=== PATIENT | male | born 1960 | race Caucasian/White ===

== ENCOUNTER 2020-01-31 13:58 | Emergency (ER) | payer MEDICAID, OTHER ==
[~2020-01-31] VITALS: Ht 177.8 cm; Wt 120.4 kg
[2020-01-31] MEDS ORDERED: SULF5DRO OP (14:30)
[2020-01-31] MEDS ORDERED: DICL75TA2 PO (14:30)
--- NOTE | 2020-01-31 14:31 | ED General ---
General Stated Complaint: LT EAR PAIN Source of Information: Patient, RN/MD Exam Limitations: No Limitations, Language Barrier History of Present Illness Date Seen by Provider: Jan 31, 2020 Time Seen by Provider: 14:20 Initial Comments This patient is unable this speak due to being . We communicated by written notes. This patient is a 59-year-old male complaining of left ear pain after swimming [place] the [place] this weekend. Patient states he feels like his ears given little worse over the past couple days. On exam patient appears to have otitis externa. Patient states he has had this issue before. Patient denies fever. Timing/Duration: 2-3 Days Severity: Mild Associated Systoms: No Denies Symptoms, No Chest Pain, No Cough, No Diaphoresis, No Fever/Chills, No Headaches, No Loss of Appetite, No Malaise, No Nausea/Vomiting, No Rash, No Seizure, No Shortness of Air, No Syncope, No Weakness, No Other Allergies and Home Medications Patient Home Medication List Home Medication List Reviewed: Yes Review of Systems Review of Systems Constitutional: No no symptoms reported; see HPI; No chills, No diaphoresis, No dizziness, No fever, No malaise, No weakness, No weight gain, No weight loss, No other EENTM: see HPI, ear pain; No no symptoms reported, No ear discharge, No hearing loss, No blurred vision, No double vision, No eye pain, No tearing, No vision loss, No dental problems, No hoarseness, No mouth pain, No mouth swelling, No epistaxis, No nose congestion, No nose pain, No throat pain, No throat swelling, No other Respiratory: No no symptoms reported, No see HPI, No cough, No dyspnea on exertion, No hemoptysis, No orthopnea, No phlegm, No short of breath, No stridor, No wheezing, No other Cardiovascular: No no symptoms reported, No see HPI, No chest pain, No edema, No Hx of Intervention, No palpitations, No syncope, No vascular heart diseas, No other Gastrointestinal: No RUQ, No LUQ, No RLQ, No LLQ, No no symptoms reported, No see HPI, No abdominal pain, No constipation, No diarrhea, No dysphagia, No hem atemesis, No heartburn, No jaundice, No loss of appetite, No melena, No nausea, No vomiting, No other Musculoskeletal: No no symptoms reported, No see HPI, No back pain, No gout, No joint pain, No joint swelling, No muscle pain, No muscle stiffness, No muscle cramps, No muscle twitching, No muscle weakness, No neck pain, No other Skin: No no symptoms reported, No see HPI, No change in color, No change in hair/nails, No dryness, No hx of skin cancer, No lesions, No lumps, No pruritus, No rash, No other All Other Systems Reviewed Negative Unless Noted: Yes Past Iijkrig-Gevoda-Blzejf Hx Patient Social History Recent Foreign Travel: No Contact w/Someone Who Travel: No Physical Exam Vital Signs Capillary Refill : Height, Weight, BMI Height: '" Weight: lbs. oz. kg; BMI Method: General Appearance: No Apparent Distress, WD/WN HEENT: PERRL/EOMI, TMs Normal, Normal ENT Inspection, Pharynx Normal, Other (patient has no swelling and redness to the ear canal on the left side. Tympanic membrane appears to be normal. Is consistent with otitis externa.) Neck: Full Range of Motion, Normal Inspection, Non Tender, Supple Respiratory: Chest Non Tender, Lungs Clear, Normal Breath Sounds, No Accessory Muscle Use, No Respiratory Distress Cardiovascular: Regular Rate, Rhythm, No Edema, No Gallop, No JVD, No Murmur, Normal Peripheral Pulses Skin: Normal Color, Warm/Dry Progress/Results/Core Measures Suspected Sepsis SIRS Temperature: Pulse: Respiratory Rate: Blood Pressure / Mean: Results/Orders Vital Signs/I&O Capillary Refill : Departure Impression Primary Impression: Otitis externa Disposition: 01 HOME, SELF-CARE Condition: Stable Departure-Patient Inst. Decision time for Depature: 14:29 Referrals: MIGUEL BELL DO (PCP) Primary Care Physician Patient Instructions: Outer Ear Infection (DC) Add. Discharge Instructions: Take medications as instructed. May take Tylenol as needed for pain. Follow-up with PCP in 2-3 days. Dry ear precautions. Scripts Diclofenac Sodium (Diclofenac Sodium) 75 Mg Tablet.dr 75 MG PO BID for 10 Days, #20 TAB 0 Refills Prov: KJ CORLEY MD 01/31/20 Sulfacetamide Sodium (Bleph-10) 5 Ml Drops 5 ML OP TID for 10 Days, #1 DROPS 0 Refills Prov: KJ CORLEY MD 01/31/20 KJ CORLEY MD Jan 31, 2020 14:30
[2020-01-31 15:12] VITALS: BP 149/76
--- OUTSIDE RECORDS SUMMARY | 2020-01-31 17:33 | XMS REPORT | Continuity of Care Document ---
Author Organization Unknown Address Unknown Phone Unavailable Allergies Active Description Code Type Severity Reaction Onset Reported/Identified Relationship to Patient Clinical Status Yes No Allergy Information Available [id number] Drug Allergy Unknown N/A Medications There is no data. Problems There is no data. Procedures There is no data. Results There is no data. Encounters ACCT No. Visit Date/Time Discharge Status Pt. Type Provider Facility Loc./Unit Complaint [id number] 01/31/2020 14:02:00 15:10:00 DIS Emergency BARNEY MORA, KJ Cortes Via [facility] ER FS LT EAR PAIN
== END 2020-01-31 15:10 | disposition home or self-care (01) ==
LOC: ER FS 14:02
DX: H60.92 Unspecified otitis externa, left ear (principal)
CPT/HCPCS: 99282

== ENCOUNTER 2020-02-11 19:44 | Emergency (ER) | payer MEDICAID ==
[~2020-02-11] VITALS: Ht 172.7 cm; Wt 116.9 kg
[~2020-02-11 19:44] MED LIST: DICL75TA2 PO; SULF5DRO OP
--- OUTSIDE RECORDS SUMMARY | 2020-02-11 19:53 | XMS REPORT | Continuity of Care Document ---
Author Organization Unknown Address Unknown Phone Unavailable Allergies Active Description Code Type Severity Reaction Onset Reported/Identified Relationship to Patient Clinical Status Yes No Allergy Information Available [id number] Drug Allergy Unknown N/A 020 Medications There is no data. Problems Date Dx Coded Attending Type Code Diagnosis Diagnosed By 02/02/2020 BARNEY MORA, KJ Cortes Ot H60.92 UNSPECIFIED OTITIS EXTERNA, LEFT EAR 02/02/2020 KJ CORLEY MD Ot H92.02 OTALGIA, LEFT EAR Procedures There is no data. Results There is no data. Encounters ACCT No. Visit Date/Time Discharge Status Pt. Type Provider Facility Loc./Unit Complaint [id number] 01/31/2020 14:02:00 020 15:10:00 DIS Outpatient KJ CORLEY MD Via [facility] ER FS LT EAR PAIN
[2020-02-11] MEDS ORDERED: ASPIRIN 81 MG CHEW (CHILDREN'S ASA) PO ONE (20:00)
[2020-02-11] MEDS ORDERED: PANTOPRAZOLE 40 MG (PROTONIX) VIAL IV STA (20:05)
[2020-02-11] MEDS ORDERED: morphine INJ 10 MG/ML 1ML (SYR OR VIAL) IVP STA (20:05)
[2020-02-11 20:17] LABS: BASOPHILS % (AUTO) 0 % (0-10); EOSINOPHILS # (AUTO) 0.2 10^3/uL (0.0-0.3); EOSINOPHILS % (AUTO) 2 % (0-10); HEMATOCRIT 44 % (40-54); HEMOGLOBIN 15.2 G/DL (13.3-17.7); LYMPHOCYTES # (AUTO) 1.3 X 10^3 (1.0-4.0); LYMPHOCYTES % (AUTO) 16 % (12-44); MEAN CORPUSCULAR HEMOGLOBIN 30 PG (25-34); MEAN CORPUSCULAR HGB CONC 35 G/DL (32-36); MEAN CORPUSCULAR VOLUME 87 FL (80-99); MONOCYTES # (AUTO) 0.8 X 10^3 (0.0-1.0); MONOCYTES % (AUTO) 9 % (0-12); NEUTROPHILS # (AUTO) 6.1 X 10^3 (1.8-7.8); NEUTROPHILS % (AUTO) 72 % (42-75); PLATELET COUNT 164 10^3/uL (130-400); RED CELL DISTRIBUTION WIDTH 13.2 % (10.0-14.5); WHITE BLOOD COUNT 8.4 10^3/uL (4.3-11.0)
--- NOTE | 2020-02-11 20:24 | Diagnostic Imaging Report ---
INDICATION: Chest pain COMPARISON: None FINDINGS: Single frontal view of the chest demonstrates normal heart size and pulmonary vascularity. The lungs are well aerated and clear. No large pleural effusion or pneumothorax is seen. The visualized osseous structures show no acute abnormalities. IMPRESSION: 1. No acute cardiopulmonary process. Dictated by: Dictated on workstation # [id number]
[2020-02-11 20:27] LABS: PROTHROMBIN TIME PATIENT 13.4 SEC (12.2-14.7)
--- NOTE | 2020-02-11 20:28 | ED Chest Pain ---
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 He was supposed to have a stress test in [place] last month but did not have gas money to get there. He has had sharp stabbing pain since 3 AM. He has been having irregular pains recently and that was part of why he was supposed to have a heart catheter and stress test and last month. The pain does not move anywhere in his chest substernal. He has not taken anything for the pain. Allergies and Home Medications Allergies Coded Allergies: No Allergy Information Available (Unverified , 01/31/20) Home Medications Diclofenac Sodium 75 Mg Tablet.dr, 75 MG PO BID Prescribed by: KJ CORLEY on 01/31/20 1430 Sulfacetamide Sodium 5 Ml Drops, 5 ML OP TID Prescribed by: KJ CORLEY on 01/31/20 1430 Patient Home Medication List Home Medication List Reviewed: Yes Review of Systems Review of Systems Constitutional: No chills, No fever EENTM: No Symptoms Reported Respiratory: No Symptoms Reported Cardiovascular: See HPI, Chest Pain Gastrointestinal: No Symptoms Reported Genitourinary: No Symptoms Reported Musculoskeletal: no symptoms reported Skin: no symptoms reported Psychiatric/Neurological: No Symptoms Reported Past Uurlvjz-Fqcpdv-Wepxhf Hx Past Med/Social Hx: Reviewed Nursing Past Med/Soc Hx Patient Social History Alcohol Use: Denies Use Recreational Drug Use: No Drug of Choice: Marijuana (Rarely) Smoking Status: Never a Smoker 2nd Hand Smoke Exposure: No Recent Foreign Travel: No Contact w/Someone Who Travel: No Recent Infectious Disease Expo: No Recent Hopitalizations: No Physical Abuse: No Sexual Abuse: No Mistreated: No Fear: No Seasonal Allergies Seasonal Allergies: No Past Medical History Surgeries: Yes Coronary Stent Respiratory: No Cardiac: Yes Heart Attack, Hypertension Neurological: No Meningitis Genitourinary: No Gastrointestinal: No Musculoskeletal: No Chronic Back Pain Endocrine: 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 oz. kg; 39.00 BMI Method: General Appearance: WD/WN, Mild Distress, Obese HEENT: Pharynx Normal Neck: Full Range of Motion, Normal Inspection, Non Tender, Supple Respiratory: Chest Non Tender, Lungs Clear, Normal Breath Sounds, No Accessory Muscle Use, No Respiratory Distress Cardiovascular: Regular Rate, Rhythm, Normal Peripheral Pulses Gastrointestinal: No Pulsatile Mass, Non Tender, Soft Extremity: Normal Capillary Refill, Normal Inspection, No Pedal Edema Neurologic/Psychiatric: Alert, Oriented x3 Skin: Normal Color, Warm/Dry Progress/Results/Core Measures Results/Orders Lab Results Laboratory Tests Test 02/11/20 20:13 Range/Units White Blood Count 8.4 4.3-11.0 10^3/uL Red Blood Count 5.05 4.35-5.85 10^6/uL Hemoglobin 15.2 13.3-17.7 G/DL Hematocrit 44 40-54 % Mean Corpuscular Volume 87 80-99 FL Mean Corpuscular Hemoglobin 30 25-34 PG Mean Corpuscular Hemoglobin Concent 35 32-36 G/DL Red Cell Distribution Width 13.2 10.0-14.5 % Platelet Count 164 130-400 10^3/uL Mean Platelet Volume 10.0 7.4-10.4 FL Neutrophils (%) (Auto) 72 42-75 % Lymphocytes (%) (Auto) 16 12-44 % Monocytes (%) (Auto) 9 0-12 % Eosinophils (%) (Auto) 2 0-10 % Basophils (%) (Auto) 0 0-10 % Neutrophils # (Auto) 6.1 1.8-7.8 X 10^3 Lymphocytes # (Auto) 1.3 1.0-4.0 X 10^3 Monocytes # (Auto) 0.8 0.0-1.0 X 10^3 Eosinophils # (Auto) 0.2 0.0-0.3 10^3/uL Basophils # (Auto) 0.0 0.0-0.1 10^3/uL Prothrombin Time 13.4 12.2-14.7 SEC INR Comment 1.0 0.8-1.4 Activated Partial Thromboplast Time 28 24-35 SEC Sodium Level 139 135-145 MMOL/L Potassium Level 3.9 3.6-5.0 MMOL/L Chloride Level 100 98-107 MMOL/L Carbon Dioxide Level 25 21-32 MMOL/L Anion Gap 14 5-14 MMOL/L Blood Urea Nitrogen 20 H 7-18 MG/DL Creatinine 0.96 0.60-1.30 MG/DL Estimat Glomerular Filtration Rate > 60 BUN/Creatinine Ratio 21 Glucose Level 185 H 70-105 MG/DL Calcium Level 9.7 8.5-10.1 MG/DL Corrected Calcium 9.5 8.5-10.1 MG/DL Magnesium Level 1.9 1.6-2.4 MG/DL Total Bilirubin 0.5 0.1-1.0 MG/DL Aspartate Amino Transf (AST/SGOT) 19 5-34 U/L Alanine Aminotransferase (ALT/SGPT) 20 0-55 U/L Alkaline Phosphatase 82 40-136 U/L Troponin I < 0.30 <0.30 NG/ML Pro-B-Type Natriuretic Peptide 89.2 H <75.0 PG/ML Total Protein 6.9 6.4-8.2 GM/DL Albumin 4.2 3.2-4.5 GM/DL My Orders Orders - GABBY FOSTER MD Cbc With Automated Diff (02/11/20 19:51) Magnesium (02/11/20 19:51) Chest 1 View Ap/Pa Only (02/11/20 19:51) Ekg Tracing (02/11/20 19:51) Comprehensive Metabolic Panel (02/11/20 19:51) Protime With Inr (02/11/20 19:51) Partial Thromboplastin Time (02/11/20 19:51) O2 (02/11/20 19:51) Monitor-Rhythm Ecg Trace Only (02/11/20 19:51) Aspirin Chewable Tablet (Baby Aspirin Ch (02/11/20 20:00) Ed Iv/Invasive Line Start (02/11/20 19:51) Troponin I Fs (02/11/20 19:51) Probnp Fs (02/11/20 19:51) Pantoprazole Injection (Protonix Injecti (02/11/20 20:05) Morphine Injection (Morphine Injection (02/11/20 20:05) Medications Given in ED Current Medications Medications Dose Ordered Sig/Jose Guadalupe Route Start Time Stop Time Status Last Admin Dose Admin Aspirin 324 mg ONCE ONCE PO 02/11/20 20:00 02/11/20 20:01 DC 02/11/20 20:04 324 MG Vital Signs/I&O 02/11/20 02/11/20 20:04 22:31 Temp 37.1 Pulse 60 57 Resp 21 16 B/P (MAP) 134/58 (83) 128/67 Pulse Ox 96 96 O2 Delivery Room Air Room Air Blood Pressure Mean: 83 Progress Progress Note #1: Progress Note Check labs and CXR with ECG for his chest pains. Give Aspirin 324 mg and Morphine for pain. Protonix dose in case he has GI component for his pain. Progress Note #2: Progress Note Labs are stable and no acute finding for DC as cause of his symptoms. When reviewing negative results with pt he reports a fainting episode 2 weeks ago and unsure if that is related. He also states his A1C is around 8.1 and they want it under 6. He reports a stong family history of cardiac disease in dad and paternal grandfather. I advised him that I can't say if he might have heart problems in the future but tonight his tests did not show signs of heart attack. I cannot give the answer for why he fainted 2 weeks ago. I offered to get him transferred to [place] so cardiology could evaluate him further in the patient refused. He was advised to call her check with the clinic to be seen this week and return if he has worsening problems Initial ECG Impression Date: Feb 11, 2020 Initial ECG Impression Time: 19:57 Initial ECG Rate: 62 Initial ECG Rhythm: Normal Sinus Initial ECG Comparisson: No Previous ECG Available Comment Sinus rhythm with a heart rate is 62 bpm. MI interval [address] elevation. QT interval 420 ms with a QTc interval of 427 ms. He has no prior tracing available for comparison. Diagnostic Imaging Diagonstic Imaging: Xray Plain Films/CT/US/NM/MRI: chest Comments NAME: DEVEN MORATAYA [facility] REC#: [id number] PT STATUS: REG ER : 1960 PHYSICIAN: GABBY FOSTER MD ADMIT DATE: 02/11/20/ER FS Draft Date of Exam:02/11/20 CHEST 1 VIEW AP/PA ONLY INDICATION: Chest pain COMPARISON: None FINDINGS: Single frontal view of the chest demonstrates normal heart size and pulmonary vascularity. The lungs are well aerated and clear. No large pleural effusion or pneumothorax is seen. The visualized osseous structures show no acute abnormalities. IMPRESSION: 1. No acute cardiopulmonary process. Dictated on workstation # [id number] Dict: 02/11/202020 Trans: 02/11/202023 [facility] [phone] Interpreted by: JITENDRA HENDERSON MD Electronically signed by: Departure Impression Primary Impression: Epigastric abdominal pain Additional Impression: Chest pain of uncertain etiology Disposition: HOME, SELF-CARE Condition: Stable Departure-Patient Inst. Decision time for Depature: 22:27 Referrals: MIGUEL BELL DO (PCP/Family) Primary Care Physician Patient Instructions: Chest Pain (DC) Add. Discharge Instructions: Your tests look ok tonight and no sign of heart attack or new heart damage on your blood work, Electrocardiogram, or chest xray. Your symptoms could be from stomach, chest wall, heart, esophagus, lungs. 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 If you have worsening pain/symptoms then return to the Emergency Department right away. All discharge instructions reviewed with patient and/or family. Voiced understanding. GABBY FOSTER MD Feb 11, 2020 20:28
[2020-02-11 20:43] LABS: ALANINE AMINOTRANSFERASE 20 U/L (0-55); ALBUMIN 4.2 GM/DL (3.2-4.5); ALKALINE PHOSPHATASE 82 U/L (40-136); BILIRUBIN,TOTAL 0.5 MG/DL (0.1-1.0); BUN/CREATININE RATIO 21; CALCIUM 9.7 MG/DL (8.5-10.1); CARBON DIOXIDE 25 MMOL/L (21-32); CHLORIDE 100 MMOL/L (98-107); CREATININE SERUM 0.96 MG/DL (0.60-1.30); GFR ESTIMATED > 60; GLUCOSE 185 MG/DL (70-105); MAGNESIUM 1.9 MG/DL (1.6-2.4); POTASSIUM 3.9 MMOL/L (3.6-5.0); SODIUM 139 MMOL/L (135-145); TOTAL PROTEIN 6.9 GM/DL (6.4-8.2)
[2020-02-11 22:31] VITALS: BP 128/67
== END 2020-02-11 22:31 | disposition home or self-care (01) ==
LOC: EDUNIT# 19:44 → ER FS 19:49
DX: R07.9 Chest pain, unspecified (principal); R10.13 Epigastric pain; E11.9 Type 2 diabetes mellitus without complications; I25.2 Old myocardial infarction; Z95.5 Presence of coronary angioplasty implant and graft
CPT/HCPCS: 36415; 71045; 80053; 83735; 83880; 84484; 85025; 85610; 85730; 93005

== ENCOUNTER 2021-07-10 16:03 | Observation (INO) | payer MEDICAID ==
[~2021-07-10] VITALS: Ht 177.8 cm; Wt 116.0 kg
--- OUTSIDE RECORDS SUMMARY | 2021-07-10 16:11 | XMS REPORT | Clinical Summary ---
Author Author [facility] Organization [facility] Address Unknown Phone Unavailable Care Team Providers Care Pulmonary Nurse Practitioner Name Role Phone No Pcp, Na PCP Unavailable Source Comments Some departments are not documenting in the electronic medical record. If you d o not see the information that you expected, contact Release of Information in [facility] [employer] Information Management department at [phone] for further assistan ce in locating additional records.[facility] Allergies Not on File Medications Not on file Active Problems Not on file Social History Date Tobacco Use Types Packs/Day Years Used Never Assessed Sex Assigned at Date Recorded Not on file Last Filed Vital Signs Not on file Plan of Treatment Health Maintenance Due Date Last Done Comments HIV SCREENING 1975 DTAP/TDAP VACCINES (1 - 1978 Tdap) HEPATITIS C SCREENING 1978 PHYSICAL (COMPREHENSIVE) 1978 EXAM COLORECTAL CANCER 2010 SCREENING SHINGLES RECOMBINANT 2010 VACCINE (1 of 2) INFLUENZA VACCINE 03/30/2021 Results Not on filefrom Last 3 Months Insurance Type Payer Benefit Subscriber ID Effective Phone Address Plan / Dates Group Medicaid [facility] MEDICAID [facility] [id number] 2017-P [address] [facility] [address] [place] [address] (Home) [place], [place] [address] Advance Directives 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
[2021-07-10] MEDS ORDERED: morphine INJ 10 MG/ML 1ML (SYR OR VIAL) IVP STA (16:19)
--- NOTE | 2021-07-10 16:19 | ED General ---
General Stated Complaint: CHEST PAIN History of Present Illness Date Seen by Provider: Jul 10, 2021 Time Seen by Provider: 16:19 Initial Comments Patient presenting to the emergency department for evaluation of chest pain that has been going on 1 week that is constant that he describes as a twisting pinching sensation in the middle of his chest. 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 Patient communicated with me that the pain is constant but he says walking can sometimes make his pain worse. He says the pain does not radiate and he denies any shortness of breath nausea vomiting or diaphoresis. Patient does have a history of coronary artery disease and had a stent placed in 2007 and then 2 additional stents placed in 2019. He has had the stent placed in 2007 was through his growing and he did not like that and he much preferred the stents placed from his right wrist. Patient says he has not had a stress test or heart catheterization since his last one in 2019. Patient gets all of his medical care at [facility]. He is in no acute distress with normal vital signs . Other than hypertension noted. Allergies and Home Medications Allergies Coded Allergies: No Allergy Information Available (Unverified , 01/31/20) Patient Home Medication List Home Medication List Reviewed: Yes Diclofenac Sodium (Diclofenac Sodium) 75 Mg Tablet.dr, 75 MG PO BID Prescribed by: KJ CORLEY on 01/31/20 1430 Sulfacetamide Sodium (Bleph-10) 5 Ml Drops, 5 ML OP TID Prescribed by: KJ CORLEY on 01/31/20 1430 Review of Systems Review of Systems Constitutional: no symptoms reported EENTM: no symptoms reported Respiratory: no symptoms reported Cardiovascular: chest pain Gastrointestinal: no symptoms reported Musculoskeletal: no symptoms reported Skin: no symptoms reported Psychiatric/Neurological: No Symptoms Reported All Other Systems Reviewed Negative Unless Noted: Yes Past Klpmogw-Kgmnbb-Zlceww Hx Seasonal Allergies Seasonal Allergies: No Past Medical History Surgeries: Yes Coronary Stent Respiratory: No Cardiac: Yes Heart Attack, Hypertension Neurological: No Meningitis Genitourinary: No Gastrointestinal: No Musculoskeletal: No Chronic Back Pain Endocrine: No Diabetes, Insulin dep HEENT: No Hearing Impairment: Deaf Cancer: No Psychosocial: No Integumentary: No Blood Disorders: No Physical Exam Vital Signs Vital Signs - First Documented 07/10/21 16:36 Temp 36.7 Pulse 74 Resp 18 B/P (MAP) 179/93 (121) O2 Delivery Room Air Capillary Refill : Height, Weight, BMI Height: '" Weight: lbs. oz. kg; 39.00 BMI Method: General Appearance: No Apparent Distress, WD/WN HEENT: PERRL/EOMI Neck: Supple Respiratory: Lungs Clear, No Respiratory Distress Cardiovascular: Regular Rate, Rhythm Gastrointestinal: Non Tender, Soft Back: Normal Inspection Extremity: Normal Capillary Refill Neurologic/Psychiatric: Alert, Oriented x3 Skin: Warm/Dry Progress/Results/Core Measures Suspected Sepsis SIRS Temperature: Pulse: Respiratory Rate: Laboratory Tests 07/10/21 16:15: White Blood Count 6.2 Blood Pressure / Mean: Laboratory Tests 07/10/21 16:15: Creatinine 0.96, INR Comment 1.0, Platelet Count 183, Total Bilirubin 0.5 Results/Orders Lab Results Laboratory Tests Test 07/10/21 16:15 Range/Units White Blood Count 6.2 4.3-11.0 10^3/uL Red Blood Count 5.20 4.30-5.52 10^6/uL Hemoglobin 15.9 13.3-17.7 g/dL Hematocrit 45 40-54 % Mean Corpuscular Volume 87 80-99 fL Mean Corpuscular Hemoglobin 31 25-34 pg Mean Corpuscular Hemoglobin Concent 35 32-36 g/dL Red Cell Distribution Width 13.1 10.0-14.5 % Platelet Count 183 130-400 10^3/uL Mean Platelet Volume 9.7 9.0-12.2 fL Immature Granulocyte % (Auto) 0 % Neutrophils (%) (Auto) 73 42-75 % Lymphocytes (%) (Auto) 15 12-44 % Monocytes (%) (Auto) 10 0-12 % Eosinophils (%) (Auto) 1 0-10 % Basophils (%) (Auto) 0 0-10 % Neutrophils # (Auto) 4.5 1.8-7.8 X 10^3 Lymphocytes # (Auto) 0.9 L 1.0-4.0 X 10^3 Monocytes # (Auto) 0.6 0.0-1.0 X 10^3 Eosinophils # (Auto) 0.1 0.0-0.3 10^3/uL Basophils # (Auto) 0.0 0.0-0.1 10^3/uL Immature Granulocyte # (Auto) 0.0 0.0-0.1 10^3/uL Prothrombin Time 13.1 12.2-14.7 SEC INR Comment 1.0 0.8-1.4 Activated Partial Thromboplast Time 26 24-35 SEC Sodium Level 138 135-145 MMOL/L Potassium Level 4.2 3.6-5.0 MMOL/L Chloride Level 102 98-107 MMOL/L Carbon Dioxide Level 24 21-32 MMOL/L Anion Gap 12 5-14 MMOL/L Blood Urea Nitrogen 15 7-18 MG/DL Creatinine 0.96 0.60-1.30 MG/DL Estimat Glomerular Filtration Rate 80 BUN/Creatinine Ratio 16 Glucose Level 319 H 70-105 MG/DL Calcium Level 9.5 8.5-10.1 MG/DL Corrected Calcium 9.1 8.5-10.1 MG/DL Total Bilirubin 0.5 0.1-1.0 MG/DL Aspartate Amino Transf (AST/SGOT) 13 5-34 U/L Alanine Aminotransferase (ALT/SGPT) 16 0-55 U/L Alkaline Phosphatase 127 40-136 U/L Troponin I < 0.30 <0.30 NG/ML Pro-B-Type Natriuretic Peptide 44.5 <75.0 PG/ML Total Protein 7.0 6.4-8.2 GM/DL Albumin 4.5 3.2-4.5 GM/DL Lipase 27 8-78 U/L My Orders Orders - JOY DAUGHERTY DO Cbc With Automated Diff (07/10/21 16:19) Comprehensive Metabolic Panel (07/10/21 16:19) Troponin I Fs (07/10/21 16:19) Chest 1 View Ap/Pa Only (07/10/21 16:19) Iv/Invasive Line Insertion .IV start (07/10/21 16:19) Lipase (07/10/21 16:19) Partial Thromboplastin Time (07/10/21 16:19) Probnp Fs (07/10/21 16:19) Protime With Inr (07/10/21 16:19) Ekg Tracing (07/10/21 16:19) Morphine Injection (Morphine Injection (07/10/21 16:19) Ondansetron Injection (Zofran Injectio (07/10/21 16:30) Aspirin Chewable Tablet (Baby Aspirin Ch (07/10/21 16:30) Medications Given in ED Current Medications Medications Dose Ordered Sig/Jose Guadalupe Route Start Time Stop Time Status Last Admin Dose Admin Aspirin 324 mg ONCE ONCE PO 07/10/21 16:30 07/10/21 16:31 DC 07/10/21 16:45 324 MG Ondansetron HCl 4 mg ONCE ONCE IVP 07/10/21 16:30 07/10/21 16:31 DC 07/10/21 16:45 4 MG Vital Signs/I&O 07/10/21 16:36 Temp 36.7 Pulse 74 Resp 18 B/P (MAP) 179/93 (121) O2 Delivery Room Air Capillary Refill : Progress Note : Progress Note Patient certainly has multiple risk factors for acute coronary syndrome. His EKG shows no signs of acute ischemia I will check labs imaging treat symptoms and reassess. Patient has hyperglycemia but otherwise his work-up is negative for acute process. I had extensive [id number] over 20 minutes writing down the resu lts of his test and answering all questions. I told him that his heart score is anywhere from 4-6 based off subjective this of the history of his chest pain as his chest pain could be considered typical given it is associated with exertion however being present for 1 week argues against typical chest pain. Patient has a heart score above 3 putting him at moderate risk for adverse coronary event over the next 30 days which I explained to him his risk factors and what this meant. He is inquiring what he should do so next and I told him that it is still unlikely that he will suffer an adverse coronary event likely around 5 to 7% and it is up to his wrist tolerance whether he wants to be transferred to another facility for further cardiac testing or whether he is comfortable following with his punch finisher at [facility] for further cardiac or stratification. Patient says that he is not tolerant of this have a risk of an adverse coronary event and would like to be further evaluated. I spoke to Dr. Villalpando at [facility] and she agreed to accept patient for further testing and treatment. Patient will be transferred in a stable condition. Departure Impression Primary Impression: Chest pain on exertion Additional Impression: Hyperglycemia Disposition: ADMITTED INPATIENT Condition: Stable Transfer Transfer Reason: Exceeds level of care Time Spoke to Accepting Phy: 17:50 Transfer Facility: [facility], accepted by Dr. Villalpando Method of Transfer: EMS Departure-Patient Inst. Referrals: MIGUEL BELL DO (PCP/Family) Primary Care Physician JOY DAUGHERTY DO Jul 10, 2021 16:19
[2021-07-10] MEDS ORDERED: ASPIRIN 81 MG CHEW (CHILDREN'S ASA) PO ONE (16:30)
[2021-07-10] MEDS ORDERED: ONDANSETRON 4 MG/2 ML (SDV) Z0FRAN IVP ONE (16:30)
[2021-07-10 16:51] LABS: BASOPHILS % (AUTO) 0 % (0-10); EOSINOPHILS % (AUTO) 1 % (0-10); HEMATOCRIT 45 % (40-54); HEMOGLOBIN 15.9 g/dL (13.3-17.7); LYMPHOCYTES % (AUTO) 15 % (12-44); MEAN CORPUSCULAR HEMOGLOBIN 31 pg (25-34); MEAN CORPUSCULAR HGB CONC 35 g/dL (32-36); MEAN CORPUSCULAR VOLUME 87 fL (80-99); MEAN PLATELET VOLUME 9.7 fL (9.0-12.2); MONOCYTES % (AUTO) 10 % (0-12); NEUTROPHILS % (AUTO) 73 % (42-75); PLATELET COUNT 183 10^3/uL (130-400); WHITE BLOOD COUNT 6.2 10^3/uL (4.3-11.0)
--- NOTE | 2021-07-10 16:51 | Diagnostic Imaging Report ---
Indication: Chest pain Portable chest shows a normal heart size and vascularity. The lungs are clear. There is no effusion or pneumothorax. There is no bony abnormality. IMPRESSION: Normal portable chest with no change from 02/11/2020. Dictated by: Dictated on workstation # [id number]
[2021-07-10 16:52] LABS: EOSINOPHILS # (AUTO) 0.1 10^3/uL (0.0-0.3); LYMPHOCYTES # (AUTO) 0.9 X 10^3 (1.0-4.0); MONOCYTES # (AUTO) 0.6 X 10^3 (0.0-1.0); NEUTROPHILS # (AUTO) 4.5 X 10^3 (1.8-7.8)
[2021-07-10 16:54] LABS: PROTHROMBIN TIME PATIENT 13.1 SEC (12.2-14.7)
[2021-07-10 17:14] LABS: BILIRUBIN,TOTAL 0.5 MG/DL (0.1-1.0); BUN/CREATININE RATIO 16; CALCIUM 9.5 MG/DL (8.5-10.1); CARBON DIOXIDE 24 MMOL/L (21-32); CHLORIDE 102 MMOL/L (98-107); CREATININE SERUM 0.96 MG/DL (0.60-1.30); GFR ESTIMATED 80; GLUCOSE 319 MG/DL (70-105); POTASSIUM 4.2 MMOL/L (3.6-5.0); SODIUM 138 MMOL/L (135-145)
[2021-07-10 17:15] LABS: ALANINE AMINOTRANSFERASE 16 U/L (0-55); ALBUMIN 4.5 GM/DL (3.2-4.5); ALKALINE PHOSPHATASE 127 U/L (40-136); LIPASE 27 U/L (8-78)
[2021-07-10 20:00] VITALS: BP 145/84
[2021-07-10] MEDS ORDERED: CATHETER FLUSH 10 ML SYR IV PRN (20:15)
[2021-07-10] MEDS: CATHETER FLUSH 10 ML SYR IV SCH (22:32)
[2021-07-10] MEDS: morphine INJ 4 MG/ML 1 ML (VIAL/SYRINGE) IV PRN (23:40)
[2021-07-11] VITALS: BP 153/84
[2021-07-11 04:00] VITALS: BP 164/106
[2021-07-11] MEDS: morphine INJ 4 MG/ML 1 ML (VIAL/SYRINGE) IV PRN ×2 (04:50→13:55)
[2021-07-11 05:31] LABS: BASOPHILS % (AUTO) 0 % (0-10); EOSINOPHILS # (AUTO) 0.1 10^3/uL (0.0-0.3); EOSINOPHILS % (AUTO) 2 % (0-10); HEMATOCRIT 44 % (40-54); HEMOGLOBIN 15.4 g/dL (13.3-17.7); LYMPHOCYTES # (AUTO) 1.6 10^3/uL (1.0-4.0); LYMPHOCYTES % (AUTO) 24 % (12-44); MEAN CORPUSCULAR HEMOGLOBIN 31 pg (25-34); MEAN CORPUSCULAR HGB CONC 35 g/dL (32-36); MEAN CORPUSCULAR VOLUME 88 fL (80-99); MEAN PLATELET VOLUME 9.9 fL (9.0-12.2); MONOCYTES # (AUTO) 0.7 10^3/uL (0.0-1.0); MONOCYTES % (AUTO) 12 % (0-12); NEUTROPHILS % (AUTO) 61 % (42-75); PLATELET COUNT 149 10^3/uL (130-400); WHITE BLOOD COUNT 6.4 10^3/uL (4.3-11.0)
[2021-07-11] MEDS: CATHETER FLUSH 10 ML SYR IV SCH ×3 (05:42→21:51)
[2021-07-11 05:45] LABS: POTASSIUM 3.8 MMOL/L (3.6-5.0)
[2021-07-11 05:46] LABS: CALCIUM 8.8 MG/DL (8.5-10.1)
[2021-07-11 05:51] LABS: CREATININE SERUM 0.81 MG/DL (0.60-1.30)
[2021-07-11 06:45] LABS: TRIGLYCERIDES 174 MG/DL (<150); VLDL CHOLESTEROL 35 MG/DL (5-40)
[2021-07-11 06:50] LABS: CHOLESTEROL 153 MG/DL (< 200)
[2021-07-11 06:51] LABS: HDL CHOLESTEROL 36 MG/DL (40-60)
[2021-07-11 07:59] VITALS: BP 160/101
[2021-07-11] MEDS ORDERED: ASPIRIN 81 MG CHEW (CHILDREN'S ASA) PO SCH (08:00)
[2021-07-11] MEDS ORDERED: CLOPIDOGREL 75 MG (PLAVIX) TABLET PO SCH (09:00)
[2021-07-11] MEDS ORDERED: ENOXAPARIN 40 MG/0.4 ML (LOVENOX) SYR SQ SCH (09:00)
[2021-07-11] MEDS: ONDANSETRON 4 MG/2 ML (SDV) Z0FRAN IV PRN ×3 (09:12→22:45)
--- NOTE | 2021-07-11 09:13 | Consultation-Cardiology ---
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 The only communication I was able to establish with him is through writing on the white board and he is responding by writing. Patient has been having recurrent chest pain for the past week, became worse yesterday and went to [facility] emergency room then he was transferred to our facility. Currently not having any active chest pain. No palpitation. No shortness of breath. He had 2 stents placed in the past last procedure was done in 2019 in [place]. Patient was disappointed that I was unable to provide him with a display designer. I explained to him that we are working on finding an director of communications, meanwhile he is able to communicate fully with writing on the white board and understand my communication and able to read. Patient requested to be transferred to [facility] because he had his procedure done at that facility in the past and they have a display designer Home Medications & Allergies Allergies: Coded Allergies: No Allergy Information Available (Unverified , 01/31/20) Home Medication List Reviewed: Yes XCJ-Mdaqsh-Vnnrgw Hx Patient Social History Drug of Choice: Marijuana (Rarely) Smoking Status: Never a Smoker 2nd Hand Smoke Exposure: No Recent Hopitalizations: No Have you traveled recently?: No Alcohol Use?: No Immunizations Up To Date Date of Influenza Vaccine: Jul 04, 2021 Past Medical History Discussed below Family Medical History Family Medical Hx Noncontributory Review of Systems-General Review of Systems Constitutional: no symptoms reported EENTM: no symptoms reported Respiratory: no symptoms reported Cardiovascular: chest pain Gastrointestinal: no symptoms reported Musculoskeletal: no symptoms reported Skin: no symptoms reported Psychiatric/Neurological: No Symptoms Reported All Other Systems Reviewed Negative Unless Noted: Yes Reviewed Test Results Reviewed Test Results Lab Laboratory Tests Test 07/10/21 16:15 07/10/21 20:36 07/11/21 05:19 Range/Units White Blood Count 6.2 6.4 4.3-11.0 10^3/uL Red Blood Count 5.20 5.05 4.30-5.52 10^6/uL Hemoglobin 15.9 15.4 13.3-17.7 g/dL Hematocrit 45 44 40-54 % Mean Corpuscular Volume 87 88 80-99 fL Mean Corpuscular Hemoglobin 31 31 25-34 pg Mean Corpuscular Hemoglobin Concent 35 35 32-36 g/dL Red Cell Distribution Width 13.1 13.0 10.0-14.5 % Platelet Count 183 149 130-400 10^3/uL Mean Platelet Volume 9.7 9.9 9.0-12.2 fL Immature Granulocyte % (Auto) 0 1 % Neutrophils (%) (Auto) 73 61 42-75 % Lymphocytes (%) (Auto) 15 24 12-44 % Monocytes (%) (Auto) 10 12 0-12 % Eosinophils (%) (Auto) 1 2 0-10 % Basophils (%) (Auto) 0 0 0-10 % Neutrophils # (Auto) 4.5 4.0 1.8-7.8 10^3/uL Lymphocytes # (Auto) 0.9 L 1.6 1.0-4.0 10^3/uL Monocytes # (Auto) 0.6 0.7 0.0-1.0 10^3/uL Eosinophils # (Auto) 0.1 0.1 0.0-0.3 10^3/uL Basophils # (Auto) 0.0 0.0 0.0-0.1 10^3/uL Immature Granulocyte # (Auto) 0.0 0.0 0.0-0.1 10^3/uL Prothrombin Time 13.1 12.2-14.7 SEC INR Comment 1.0 0.8-1.4 Activated Partial Thromboplast Time 26 24-35 SEC Sodium Level 138 141 135-145 MMOL/L Potassium Level 4.2 3.8 3.6-5.0 MMOL/L Chloride Level 102 106 98-107 MMOL/L Carbon Dioxide Level 24 22 21-32 MMOL/L Anion Gap 12 13 5-14 MMOL/L Blood Urea Nitrogen 15 15 7-18 MG/DL Creatinine 0.96 0.81 0.60-1.30 MG/DL Estimat Glomerular Filtration Rate 80 97 BUN/Creatinine Ratio 16 19 Glucose Level 319 H 146 H 70-105 MG/DL Calcium Level 9.5 8.8 8.5-10.1 MG/DL Corrected Calcium 9.1 8.5-10.1 MG/DL Total Bilirubin 0.5 0.1-1.0 MG/DL Aspartate Amino Transf (AST/SGOT) 13 5-34 U/L Alanine Aminotransferase (ALT/SGPT) 16 0-55 U/L Alkaline Phosphatase 127 40-136 U/L Troponin I < 0.30 0.192 H <0.028 NG/ML Pro-B-Type Natriuretic Peptide 44.5 <75.0 PG/ML Total Protein 7.0 6.4-8.2 GM/DL Albumin 4.5 3.2-4.5 GM/DL Lipase 27 8-78 U/L Triglycerides Level 174 H <150 MG/DL Cholesterol Level 153 < 200 MG/DL LDL Cholesterol Direct 102 1-129 MG/DL VLDL Cholesterol 35 5-40 MG/DL HDL Cholesterol 36 L 40-60 MG/DL Physical Exam Physical Exam Vital Signs Vital Signs - First Documented 07/10/21 07/10/21 16:36 18:42 Temp 36.7 Pulse 74 Resp 18 B/P (MAP) 179/93 (121) Pulse Ox 97 O2 Delivery Room Air Capillary Refill : Less Than 3 Seconds Height, Weight, BMI Height: '" Weight: lbs. oz. kg; 36.69 BMI Method: General Appearance: No Apparent Distress, WD/WN Eyes: Bilateral Eye Normal Inspection, Bilateral Eye PERRL, Bilateral Eye EOMI HEENT: PERRL/EOMI Neck: Supple Respiratory: Lungs Clear, No Respiratory Distress Cardiovascular: Regular Rate, Rhythm Gastrointestinal: Non Tender, Soft Back: Normal Inspection Extremity: Normal Capillary Refill Neurologic/Psychiatric: Alert, Oriented x3 Skin: Warm/Dry Lymphatic: No Adenopathy A/P-Cardiology Admission Diagnosis Non-ST elevation myocardial infarction Coronary artery disease Hypertension Hyperlipidemia Assessment/Plan Non-ST elevation myocardial infarction, unstable angina, mild elevation in troponin. Discussed the management plan and recommended cardiac catheterization possible PTCA. Patient preferred to have the procedure done at [place]. Dr. Flores will be notified We were able to have a display designer on line and patient agreed on having the procedure in [place] We will proceed with left heart catheterization possible PTCA Coronary artery disease, history of stenting done twice in 2007 and 2018 at [facility]. I explained to the patient the need for cardiac catheterization due to his symptoms and elevated troponin level, I explained the meaning of troponin level elevation. Offered medical therapy versus cardiac catheterization, patient initially requested to transfer to [place] due to the lack of display designer, we were able to have a display designer online and explained the situation to the patient, he had that procedure done twice in the past and he understood the risks and the benefit and agreed on having the procedure. Hypotension, restart home medication monitor blood pressure, he was started on losartan 100 mg daily and I added Toprol-XL 25 mg daily Hyperlipidemia I will evaluate lipid profile History of encephalitis resulted in losing his hearing and speech. Clinical Quality Measures AMI/AHF: ASA po Prior to arrival: CHANEL Piedra MD Jul 11, 2021 09:13
[2021-07-11] MEDS ORDERED: LIDOCAINE 1% INJ 20 ML 20 ML VIAL ONE (09:24)
[2021-07-11] MEDS ORDERED: HEParin (CATH LAB) 2,000 ML IV ONE (09:24)
[2021-07-11] MEDS ORDERED: HEParin 1000 UNIT/ML (10ML VIAL) FOR BOLUS ONE (09:24)
[2021-07-11] MEDS ORDERED: NS IV 1000 ML 1,000 ML ONE (09:24)
[2021-07-11] MEDS ORDERED: VERAPAMIL 5 MG/2 ML (CALAN) VIAL IV ONE (09:31)
[2021-07-11] MEDS ORDERED: fentaNYL INJ 100 MCG/2 ML AMP ONE (09:32)
[2021-07-11] MEDS ORDERED: MIDAZOLAM 5 MG/5 ML (VERSED) VIAL ONE (09:32)
[2021-07-11] MEDS ORDERED: NITRO DRIP 25000 MCG/D5W 250 ML IV ONE (09:32)
[2021-07-11] MEDS ORDERED: inSUlin ASPART (NovoLOG) 1 UNIT/0.01 ML (CHARGE PER UNIT) SC SCH (10:00)
[2021-07-11] MEDS ORDERED: ENOXAPARIN 300 MG/3 ML (LOVENOX) MULTI-DOSE VIAL SQ SCH (10:00)
[2021-07-11] MEDS: NS IV 1000 ML 1,000 ML IV SCH ×4 (10:38→21:15)
[2021-07-11] MEDS ORDERED: ASPIRIN 325 MG (5 GR) TABLET ONE (11:10)
[2021-07-11] MEDS ORDERED: CLOPIDOGREL 300 MG (PLAVIX) TABLET PO ONE (11:10)
--- NOTE | 2021-07-11 11:18 | Cardiac Cath Report ---
Cardiac Cath Report Physician (s)/Supervisor Coating (s) Physician CHANEL PEÑA MD Pre-Procedure Diagnosis Pre-Procedure Diagnosis: Coronary artery disease, non-ST elevation myocardial infarction Post-Procedure Note Procedure Start Date: Jul 11, 2021 Name of Procedure: Left heart catheterization Balloon angioplasty to the LAD Findings/Procedure Note PROCEDURE NOTE: 60 years old gentleman with history of coronary artery disease, multiple interventions in the past, admitted with non-ST elevation myocardial infarction, patient was hesitant to have the procedure done in [place] due to the lack of forms designer initially, agreed on the procedure after we were able to arrange for an online forms designer. After explaining the procedure to the patient, all pros and cons were explained, all questions were answered. The patient signed the consent and then he was placed on the cardiac catheterization laboratory. Groin was prepped SL fashion local anesthesia was used. Sheath placed in the right radial artery, Pingree catheter was advanced, I was unable to maintain good engagement in the left coronary system and was unable to turn it to the right coronary system. The catheter was exchanged and used Benson right catheter and intubated the right coronary system and angiogram was done then I tried with EBU 4 without success, I was successful with EBU 3.5 and intubated the left coronary system, angiogram showed severe in-stent restenosis/subtotal occlusion in the mid LAD. Patient received a total of 6000 units of heparin, BMW wire was advanced then I used trek 3 x 20 balloon, tried multiple inflation and he continued to have the watermelon seed effect with sliding of the balloon, after multiple attempt I was able to capture the lesion well and expanded to 12 desmond 3.1 mm in diameter, multiple inflation were done, angiogram was satisfactory showing excellent results. At the end of the procedure the sheath was removed. Vascular band deployed FINDINGS: Hemodynamics LV 147/32, end-diastolic pressure of 32 Aorta 142/98 mean of 120 ANATOMY: Left Main is free of obstructive disease Left Anterior Descending has 2 overlapping stent in the mid LAD with severe in- stent restenosis/subtotal occlusion, complex intervention with balloon angioplasty using trek 3 x 20 balloon with multiple inflation with excellent results Left Circumflex has mild disease nonobstructive disease Right Coronary Artery is large dominant artery with small vessel disease, slow flow, nonobstructive disease LV Gram was done with the Benson right catheter in the left ventricular cavity, left ventriculogram showed normal left ventricular size, ejection fraction 60% CONCLUSION: 1. Severe in-stent restenosis in the mid LAD, complex intervention with successful balloon angioplasty using trek 3 x 20 balloon with multiple inflation expanded under 14 desmond to 3.1 mm with excellent results, no residual stenosis noted 2. Large dominant right coronary artery with small vessel disease and slightly slow flow. Nonobstructive disease 3. Mild disease in the circumflex artery 4. Normal left ventricular size and systolic function estimate ejection fraction 60% DISCUSSION AND RECOMMENDATION: Patient was loaded with aspirin and Plavix, adding Lipitor to his medication and monitor tolerance and response Anesthesia Type: Conscious Sedation Estimated blood loss (mL): 25 ml Contrast Amount: 103 ml Total Radiation Dose: 1358 mGy Post-Procedure Diagnosis Post-operative diagnosis: Non-ST elevation myocardial infarction Coronary artery disease Hypertension Hyperlipidemia CHANEL PEÑA MD Jul 11, 2021 11:18
--- NOTE | 2021-07-11 11:40 | History & Physical-Hospitalist ---
History of Present Illness HPI/Chief Complaint Shahzad Bowers is a 60 year old male with PMH HTN, HLD, CAD, T2DM, obesity, deaf and mute primarily communicating with Tanzanian Sign Language, who presented with chest pain. A tele-freelance interpreter/translator was utilized during the visit. He reports having the pain for about a week. It is worse with activity. He has some associated red rtness of breath. He denies radiation of the pain. It is 4-5/10 currently. He has nausea but no vomiting. He feel comfortable proceeding with the heart catheterization at our facility with the medical interpreter available. Source: patient Exam Limitations: language barrier Date Seen 07/11/21 Time Seen by a Provider: 09:00 Attending Physician Hemalatha Villalpando MD PCP Skinny Ramirez DO Referring Physician Date of Admission Jul 10, 2021 at 17:55 Home Medications & Allergies Home Medications Reviewed patient Home Medication Reconciliation performed by pharmacy medication reconciliations facilities technician and/or nursing. Patients Allergies have been reviewed. Allergies Allergies Coded Allergies No Allergy Information Available (Unverified01/31/20) Past Grrbwow-Yalurn-Xhaxlu Hx Patient Social History Tobacco Use?: No Smoking Status: Never a Smoker Smokeless Tobacco Frequency: Never a User Use of E-Cig and/or Vaping Kike: Never a User Substance use?: No Alcohol Use?: No Pt feels they are or have been: No Immunizations Up To Date Date of Influenza Vaccine: Jul 04, 2021 First/Initial COVID19 Vaccinat: APR 2021 Seasonal Allergies Seasonal Allergies: No Current Status Advance Directives: No Communicates: Signs Primary Language: Dominican Preferred Spoken Language: Dominican Is interpretation needed?: No Sensory deficits: Hearing impairment, Speech impairment Implanted or Applied Medical D: Stents Past Medical History Surgeries: Coronary Stent Heart Attack, Hypertension Meningitis Chronic Back Pain Diabetes, Insulin dep Hearing Impairment: Deaf Blood Disorders: No Family Medical History No Pertinent Family Hx Review of Systems Constitutional: no symptoms reported EENTM: no symptoms reported Respiratory: dyspnea on exertion, short of breath Cardiovascular: chest pain Gastrointestinal: no symptoms reported Genitourinary: no symptoms reported Musculoskeletal: no symptoms reported Skin: no symptoms reported Psychiatric/Neurological: No Symptoms Reported Physical Exam Physical Exam Vital Signs Vital Signs - First Documented 07/10/21 07/10/21 16:36 18:42 Temp 36.7 Pulse 74 Resp 18 B/P (MAP) 179/93 (121) Pulse Ox 97 O2 Delivery Room Air Capillary Refill : Less Than 3 Seconds Height, Weight, BMI Height: '" Weight: lbs. oz. kg; 36.69 BMI Method: General Appearance: No Apparent Distress, Obese HEENT: PERRL/EOMI, Pharynx Normal Neck: Normal Inspection, Supple Respiratory: Lungs Clear, Normal Breath Sounds, No Respiratory Distress Cardiovascular: Regular Rate, Rhythm, No Edema, No Murmur Gastrointestinal: Normal Bowel Sounds, Non Tender, Soft Extremity: Normal Inspection, Non Tender, No Pedal Edema Neurologic/Psychiatric: Alert, Oriented x3, No Motor/Sensory Deficits, Normal Mood/Affect Skin: Normal Color, Warm/Dry Results Results/Procedures Labs Laboratory Tests 07/10/21 16:15 07/11/21 05:19 Patient resulted labs reviewed. Imaging: Reviewed Imaging Report Assessment/Plan Admission Diagnosis Chest pain Admission Status: Observation Assessment and Plan Chest pain NSTEMI CAD Cardiology consulted Initial troponin <0.3, repeat 0.19 Planning for left heart cath Continue ASA and Plavix Continue statin T2DM Sliding scale insulin HTN Continue Losartan Obesity Clinically significant, no acute management needs DVT prophylaxis: Lovenox Diagnosis/Problems Diagnosis/Problems (1) Chest pain Status: Acute (2) NSTEMI (non-ST elevation myocardial infarction) Status: Acute (3) CAD (coronary artery disease) Status: Acute (4) HTN (hypertension) Status: Chronic (5) T2DM (type 2 diabetes mellitus) Status: Chronic 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
[2021-07-11] MEDS ORDERED: ACETAMINOPHEN 325 MG TABLET ONE (11:58)
[2021-07-11] MEDS: LOSARTAN 100 MG (COZAAR) TABLET PO SCH (12:00)
[2021-07-11] MEDS: ASPIRIN 81 MG CHEW (CHILDREN'S ASA) PO SCH (12:00)
[2021-07-11] MEDS ORDERED: HYDR12.56 PO (13:08)
[2021-07-11] MEDS ORDERED: ROSU40TA23 PO (13:08)
[2021-07-11] MEDS ORDERED: IBUP-2473 PO (13:08)
[2021-07-11] MEDS ORDERED: CLOP75TA28 PO (13:08)
[2021-07-11] MEDS ORDERED: FAMO20TA5 PO (13:08)
[2021-07-11] MEDS ORDERED: ACHD5005 PO (13:08)
[2021-07-11] MEDS ORDERED: INSU100I14 SC (13:08)
[2021-07-11] MEDS ORDERED: METF-397 PO (13:08)
[2021-07-11] MEDS ORDERED: INSU100I10 SC (13:08)
[2021-07-11] MEDS ORDERED: LOSA100T57 PO (13:08)
[2021-07-11] MEDS ORDERED: FAMOTIDINE 20 MG (PEPCID) TABLET PO PRN (13:45)
[2021-07-11 16:00] VITALS: BP 149/80
[2021-07-11] MEDS: inSUlin ASPART (NovoLOG) 1 UNIT/0.01 ML (CHARGE PER UNIT) SC SCH ×3 (16:00→21:15)
[2021-07-11] MEDS: HYDROcodone/APAP 5 MG/325 MG (LORTAB) TAB PO PRN ×2 (19:03→22:45)
[2021-07-11 20:00] VITALS: BP 165/87
[2021-07-11] MEDS ORDERED: ROSUVASTATIN 20 MG (CRESTOR) TABLET PO SCH (21:00)
[2021-07-11] MEDS ORDERED: ENOXAPARIN 40 MG/0.4 ML (LOVENOX) SYR SC SCH (21:00)
[2021-07-12] VITALS: BP 172/96
[2021-07-12 04:00] VITALS: BP 153/89
[2021-07-12 05:39] LABS: HEMATOCRIT 46 % (40-54); HEMOGLOBIN 15.6 g/dL (13.3-17.7); MEAN CORPUSCULAR HEMOGLOBIN 30 pg (25-34); MEAN CORPUSCULAR HGB CONC 34 g/dL (32-36); MEAN CORPUSCULAR VOLUME 88 fL (80-99); MEAN PLATELET VOLUME 10.1 fL (9.0-12.2); PLATELET COUNT 156 10^3/uL (130-400); WHITE BLOOD COUNT 6.7 10^3/uL (4.3-11.0)
[2021-07-12 05:53] LABS: ALBUMIN 3.7 GM/DL (3.2-4.5); POTASSIUM 3.8 MMOL/L (3.6-5.0)
[2021-07-12 05:55] LABS: CALCIUM 8.8 MG/DL (8.5-10.1)
[2021-07-12 05:56] LABS: TOTAL PROTEIN 6.3 GM/DL (6.4-8.2)
[2021-07-12 05:58] LABS: BILIRUBIN,TOTAL 0.9 MG/DL (0.1-1.0)
[2021-07-12 05:59] LABS: CREATININE SERUM 0.81 MG/DL (0.60-1.30)
[2021-07-12] MEDS: NS IV 1000 ML 1,000 ML IV SCH (06:03)
[2021-07-12] MEDS: inSUlin ASPART (NovoLOG) 1 UNIT/0.01 ML (CHARGE PER UNIT) SC SCH ×2 (06:03→06:47)
[2021-07-12] MEDS: CATHETER FLUSH 10 ML SYR IV SCH (06:04)
[2021-07-12 07:50] VITALS: BP 140/77
--- NOTE | 2021-07-12 08:42 | Cardiology Progress Note ---
Subjective Date Seen by Provider: Jul 12, 2021 Time Seen by Provider: 08:40 Subjective/Events-last exam Patient is laying down in bed, having no new complaint. No chest pain was reported. Review of Systems General: No Chills, No Night Sweats, No Fatigue, No Malaise, No Appetite, No Other HEENT: No Head Aches, No Visual Changes, No Eye Pain, No Ear Pain, No Dysphasia , No Sinus Congestion, No Post Nasal Drip, No Sore Throat, No Other Pulmonary: No Dyspnea, No Cough, No Pleuritic Chest Pain, No Other Cardiovascular: No: Chest Pain, Palpitations, Orthopnea, Paroxysmal Noc. Dyspnea, Edema, Lt Headedness, Other Objective-Cardiology Exam Last Set of Vital Signs Vital Signs 07/12/21 07:50 Temp 37.0 Pulse 52 Resp 16 B/P (MAP) 140/77 (98) Pulse Ox 96 O2 Delivery Room Air I&O Intake and Output 07/11/21 23:59 Intake Total 1675 ml Output Total 175 ml Balance 1500 ml Intake Oral 1675 ml Output Urine Total 175 ml # Voids 3 # Bowel Movements 1 General: Alert, Oriented X3, Cooperative HEENT: Atraumatic, PERRLA Neck: Supple, No JVD, No Thyromegaly Lungs: Clear to Auscultation, Normal Air Movement Heart: Regular Rate, Normal S1, Normal S2, No Murmurs Abdomen: Normal Bowel Sounds, Soft, No Tenderness, No Hepatosplenomegaly, No Masses Extremities: No Clubbing, No Cyanosis, No Edema, Normal Pulses, No Tenderne ss/Swelling Skin: No Rashes, No Breakdown, No Significant Lesion Neuro: Normal Gait, Normal Speech, Strength at 5/5 X4 Ext, Normal Tone, Sensation Intact Psych/Mental Status: Mental Status NL, Mood NL Results Lab Laboratory Tests 07/12/21 05:19 A/P-Cardiology Admission Diagnosis Non-ST elevation myocardial infarction Coronary artery disease Hypertension Hyperlipidemia Assessment/Plan Non-ST elevation myocardial infarction, status post cardiac catheterization and balloon angioplasty for in-stent restenosis in the LAD with excellent results. Reporting improvement in his chest pain. No further episodes were reported. Coronary artery disease, history of stenting done twice in 2007 and 2018 at [facility]. Cardiac catheterization was carried out on 07/11/2021 showing severe in-stent restenosis status post balloon angioplasty using 3 x 20 balloon with excellent results. Patient was educated on the importance of taking aspirin and Plavix at this time. 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 Okay for discharge from cardiology standpoint, follow-up with primary inside wirer CHANEL PEÑA MD Jul 12, 2021 08:42
[2021-07-12] MEDS ORDERED: CLOPIDOGREL 75 MG (PLAVIX) TABLET PO SCH (09:00)
[2021-07-12] MEDS ORDERED: ASPIRIN E.C. 81 MG (ECOTRIN) TAB PO SCH (09:00)
[2021-07-12] MEDS ORDERED: meTOproloL SUCCINATE 50 MG (TOPROL XL) TAB PO SCH (09:00)
[2021-07-12] MEDS ORDERED: METO50TA7 PO (09:29)
[2021-07-12] MEDS ORDERED: ASPI-1238 PO (09:29)
[2021-07-12] MEDS: ASPIRIN 81 MG CHEW (CHILDREN'S ASA) PO SCH (09:55)
[2021-07-12] MEDS: LOSARTAN 100 MG (COZAAR) TABLET PO SCH (09:56)
[2021-07-12 13:44] VITALS: BP 143/83
--- NOTE | 2021-07-12 21:52 | Discharge Summary ---
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 Cardiology was consulted and assisted with his care. His troponin was elevated. He underwent a left heart catheterization which revealed severe in-stent stenosis. He underwent balloon angioplasty. He was recommended to start taking aspirin in addition to Plavix. He was continued on his statin. 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 He was discharged home in stable condition. Labs and Pending Lab Test: Laboratory Tests 07/12/21 05:19: White Blood Count 6.7, Red Blood Count 5.17, Hemoglobin 15.6, Hematocrit 46, Mean Corpuscular Volume 88, Mean Corpuscular Hemoglobin 30, Mean Corpuscular Hemoglobin Concent 34, Red Cell Distribution Width 12.9, Platelet Count 156, Mean Platelet Volume 10.1, Sodium Level 137, Potassium Level 3.8, Chloride Level 104, Carbon Dioxide Level 24, Anion Gap 9, Blood Urea Nitrogen 12, Creatinine 0.81, Estimat Glomerular Filtration Rate 97, BUN/Creatinine Ratio 15, Glucose Level 101, Calcium Level 8.8, Corrected Calcium 9.0, Total Bilirubin 0.9, Aspartate Amino Transf (AST/SGOT) 18, Alanine Aminotransferase (ALT/SGPT) 16, Alkaline Phosphatase 60, Total Protein 6.3L, Albumin 3.7 Home Meds Active Aspirin EC (Aspirin) 81 Mg Tablet.dr 81 Mg PO DAILY 30 Days Metoprolol Succinate 50 Mg Tab.er.24h 50 Mg PO DAILY 30 Days Reported Ibuprofen 200 Mg Tablet 400-600 Mg PO Q8H PRN Famotidine 20 Mg Tablet 20 Mg PO BID PRN Novolog Flexpen (Insulin Aspart) 300 Units/3 Ml Solution Units SC AC Losartan Potassium 100 Mg Tablet 100 Mg PO DAILY Hydrochlorothiazide 12.5 Mg Tablet 12.5 Mg PO DAILY Metformin HCl 500 Mg Tablet 500 Mg PO BID Hydrocodone-Acetamin 5-325 mg (Hydrocodone/Acetaminophen) 1 Each Tablet 1 Each PO BID PRN Lantus Solostar (Insulin Glargine,Hum.rec.anlog) 100 Unit/1 Ml Insuln.pen 66 Units SC HS Rosuvastatin Calcium 40 Mg Tablet 40 Mg PO DAILY Clopidogrel (Clopidogrel Bisulfate) 75 Mg Tablet 75 Mg PO DAILY Assessment/Pt Instructions Take medications as prescribed. Follow up with your PCP. Return with worsening symptoms. Discharge Planning: <30 minutes discharge planning Discharge Instructions Discharge Diet: Low Sodium Diet Activity as Tolerated: Yes Consultations Cardiology Discharge Physical Examination Vital Signs Vital Signs Date Time Temp Pulse Resp B/P (MAP) Pulse Ox O2 Delivery O2 Flow Rate FiO2 07/12/21 13:44 36.6 69 18 143/83 93 Room Air General Appearance: No Apparent Distress, Obese Respiratory: Lungs Clear, Normal Breath Sounds, No Respiratory Distress Cardiovascular: Regular Rate, Rhythm, No Edema, No Murmur Gastrointestinal: Normal Bowel Sounds, Non Tender, Soft Extremity: Normal Inspection, Non Tender, No Pedal Edema Skin: Normal Color, Warm/Dry Neurologic/Psychiatric: Alert, Oriented x3, No Motor/Sensory Deficits, Normal Mood/Affect Allergies: Coded Allergies: No Allergy Information Available (Unverified , 01/31/20) Discharge Summary Date of Admission Jul 10, 2021 at 17:55 Date of Discharge Jul 12, 2021 at 10:30 Discharge Date: Jul 12, 2021 Discharge Time: 10:30 Admission Diagnosis Chest pain Discharge Diagnosis Chest pain NSTEMI CAD (1) Chest pain Status: Acute (2) NSTEMI (non-ST elevation myocardial infarction) Status: Acute (3) CAD (coronary artery disease) Status: Acute (4) HTN (hypertension) Status: Chronic (5) T2DM (type 2 diabetes mellitus) Status: Chronic Qualifiers: (6) HLD (hyperlipidemia) Status: Chronic (7) Obesity Status: Chronic (8) 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
== END 2021-07-12 10:30 | disposition home or self-care (01) ==
LOC: EDUNIT# 16:03 → ER FS 16:08 → CSD 17:55
PROVIDERS: ADMIT Family Medicine; ATTEND Internal Medicine
DX: I25.110 Atherosclerotic heart disease of native coronary artery with unstable angina pectoris (principal); T82.855A Stenosis of coronary artery stent, initial encounter; I10 Essential (primary) hypertension; E11.65 Type 2 diabetes mellitus with hyperglycemia; E78.5 Hyperlipidemia, unspecified; I21.4 Non-ST elevation (NSTEMI) myocardial infarction; I95.9 Hypotension, unspecified; H91.3 Deaf nonspeaking, not elsewhere classified; E66.9 Obesity, unspecified; G89.29 Other chronic pain; M54.9 Dorsalgia, unspecified; Z79.82 Long term (current) use of aspirin; Z79.84 Long term (current) use of oral hypoglycemic drugs; Z79.1 Long term (current) use of non-steroidal anti-inflammatories (NSAID); Z79.899 Other long term (current) drug therapy; Z95.5 Presence of coronary angioplasty implant and graft; Z79.4 Long term (current) use of insulin; Z79.891 Long term (current) use of opiate analgesic; Z79.02 Long term (current) use of antithrombotics/antiplatelets; Z68.36 Body mass index [BMI] 36.0-36.9, adult
CPT/HCPCS: 36415; 71045; 80048; 80053 ×2; 80061; 82947; 83690; 83880; 84484 ×2; 85025 ×2; 85027; 85610; 85730; 92920; 93005; 93458; 99283; C1725; C1769; C1887 ×2; C1894

== ENCOUNTER → 2022-08-10 | Outpatient (CLI) | payer MEDICAID ==
[~2022-08-10] MED LIST changes: +ACHD5005 PO; +ASPI-1238 PO; +CLOP75TA28 PO; +FAMO20TA5 PO; +HYDR12.56 PO; +IBUP-2473 PO; +INSU100I10 SC; +INSU100I14 SC; +LOSA100T57 PO; +METF-397 PO; +METO50TA7 PO; +ROSU40TA23 PO
--- NOTE | 2022-08-10 16:50 | Diagnostic Imaging Report ---
PROCEDURE: CT abdomen and pelvis without contrast. TECHNIQUE: Multiple contiguous axial images were obtained through the abdomen and pelvis without the use of intravenous contrast. Auto Exposure Controls were utilized during the CT exam to meet ALARA standards for radiation dose reduction. INDICATION: Left-sided flank pain. COMPARISON: None. FINDINGS: The heart is unremarkable. Minimal left basilar opacities are seen likely representing atelectasis. A calculus is seen in the urinary bladder measuring 0.6 cm. There is mild periureteral fat stranding on the left with mild left-sided hydroureteronephrosis. No hydronephrosis or obstructing calculi on the right. A cyst with rim calcification is seen in the mid right kidney measuring 1.9 cm. There is hepatic steatosis. The gallbladder is surgically absent. The spleen, pancreas, and adrenal glands have a normal noncontrast CT appearance. There is no pathologically enlarged mesenteric or retroperitoneal adenopathy. The bowel loops are nondilated. There is no free fluid or free air. No acute osseous abnormalities. There is no free air, loculated collection, or adenopathy in the pelvis. IMPRESSION: 1. Findings most suggestive of recently passed calculus from the left ureter with mild residual left-sided hydroureteronephrosis and mild perineural fat stranding. 2. Cyst with rim calcification in the mid right kidney measuring 1.9 cm. This could be further evaluated with ultrasound of the kidneys if indicated. 3. Hepatic steatosis. Dictated by: Dictated on workstation # [id number]
== END ==
LOC: RAD FS 15:10
PROVIDERS: ATTEND Student in an Organized Health Care Education/Training Program
DX: N28.1 Cyst of kidney, acquired (principal); K76.0 Fatty (change of) liver, not elsewhere classified
CPT/HCPCS: 74176